=== PATIENT | female | born 1960 | race Caucasian/White ===

== ENCOUNTER 2016-09-13 15:50 | Emergency (ER) | payer OTHER ==
--- NOTE | 2016-09-13 16:53 | ED ---
Throat Pain/Nasal Congestion - HPI Summary HPI Summary: Pt here w/ Lt ear pain today. Has had a URI sx this past week - rhinorrhea, nasal congestion, scratchy throat. No issues w/ balance or hearing loss. Denies fever, chills, cough. Has had diarrhea as well past few days but has been able to rehydrate orally - no nausea, no vomiting. Explains she is very healthy and never gets sick but was around her grandchildren recently and they have had this illness as well. No other complaints today. - History of Current Complaint Chief Complaint: EDEarPain Time Seen by Provider: 09/13/16 15:57 Hx Obtained From: Patient - Allergies/Home Medications Allergies/Adverse Reactions: Allergies Allergy/AdvReac Type Severity Reaction Status Date / Time Sulfamethoxazole Allergy Rash Verified 09/13/16 15:52 w/Trimethoprim [From Bactrim] PMH/Surg Hx/FS Hx/Imm Hx Previously Healthy: Yes Endocrine/Hematology History: Denies: Hx Diabetes, Hx Thyroid Disease Cardiovascular History: Reports: Hx Hypertension Respiratory History: Denies: Hx Asthma Infectious Disease History: No Infectious Disease History: Denies: Traveled Outside the [place] in Last 30 Days - Family History Known Family History: Positive: Hypertension - Social History Lives: Alone Alcohol Use: None Hx Substance Use: No Substance Use Type: Reports: None Hx Tobacco Use: No Smoking Status (MU): Never Smoked Tobacco Review of Systems Negative: Fever, Chills, Fatigue Eyes: Negative Positive: Ear Ache - see HPI. Negative: Dental Pain, Sore Throat Negative: Chest Pain Negative: Shortness Of Breath, Cough Positive: Diarrhea. Negative: Abdominal Pain, Vomiting, Nausea Positive: no symptoms reported Musculoskeletal: Negative Negative: Rash Neurological: Negative Psychological: Normal All Other Systems Reviewed And Are Negative: Yes Physical Exam Triage Information Reviewed: Yes Vital Signs On Initial Exam: Initial Vitals Temp Pulse Resp BP Pulse Ox 98.4 F 91 18 164/96 98 09/13/16 15:52 09/13/16 15:52 09/13/16 15:52 09/13/16 15:52 09/13/16 15:52 Vital Signs Reviewed: Yes Appearance: Positive: Well-Appearing, No Pain Distress, Well-Nourished Skin: Positive: Warm, Dry - no rash overlying Lt side of head/neck Head/Face: Positive: Normal Head/Face Inspection - sinuses NTTP Eyes: Positive: Normal, EOMI. Negative: Conjunctiva Inflammed, Discharge ENT: Positive: Hearing grossly normal, Pharynx normal - cobblestoning, Nasal congestion - B/L nasal mucosa w/ erythema, edema and scant yellow d/c, TMs normal - TM clear w/o erythema, no air/fluid level, no hyperemia, no d/c, NTTP. Negative: Tonsillar swelling, Tonsillar exudate Neck: Positive: Supple, Nontender, No Lymphadenopathy Respiratory/Lung Sounds: Positive: Clear to Auscultation, Breath Sounds Present. Negative: Rales, Rhonchi, Stridor, Wheezes Cardiovascular: Positive: Normal, RRR, S1, S2 Abdomen Description: Positive: Nontender, No Organomegaly, Soft Bowel Sounds: Positive: Present Musculoskeletal: Positive: Normal, Strength/ROM Intact Neurological: Positive: Normal, Sensory/Motor Intact, Alert, Oriented to Person Place, Time, CN Intact II-III Psychiatric: Positive: Normal Diagnostics - Vital Signs Vital Signs Temp Pulse Resp BP Pulse Ox 09/13/16 15:52 98.4 F 91 18 164/96 98 - Laboratory Lab Statement: Any lab studies that have been ordered have been reviewed, and results considered in the medical decision making process. EENT Course/Dx - Course Course Of Treatment: Pt's uri w/ nasal congestion appears to be causing her Lt sided ear pressure. Reviewed conservative care measures to address this. Also provided ENT referral should sx persist despite implementing recommendations. Also reviewed danger s/sx of when to return to ED. Pt agrees w/ plan. - Diagnoses Provider Diagnoses: Dysfunction of left eustachian tube, URI (upper respiratory infection) Discharge - Discharge Plan Condition: Stable Disposition: HOME Patient Education Materials: Upper Respiratory Infection (ED), Eustachian Tube Dysfunction (GEN) Referrals: [facility] [place] [facility]IAN REFERRAL [Outside] Non Staff,Doctor [Primary Care Provider] - Additional Instructions: You may try the following to improve ear pain/pressure: *Saline nasal spray *Afrin nasal spray *Sudafed *Ibuprofen *Vicks vapor rub *humidification *Facial steam with or without eucalyptus essential oil (use sparingly) If symptoms persist or worsen, follow-up with ENT specialist. Contact information provided here. *If you develop headache, change in vision, fever, difficulty swallowing/ breathing, intractable vomiting/diarrhea, and/or fever uncontrolled by ibuprofen /acetaminophen, return to ED
[2016-09-13 17:09] VITALS: BP 136/97
== END 2016-09-13 17:07 | disposition home or self-care (01) ==
LOC: ED 15:50
DX: H69.90 Unspecified Eustachian tube disorder, unspecified ear (principal); J06.9 Acute upper respiratory infection, unspecified; H92.09 Otalgia, unspecified ear; R19.7 Diarrhea, unspecified
CPT/HCPCS: 99281

== ENCOUNTER → 2017-06-30 11:22 | Emergency (ER) | payer OTHER ==
[~2017-06-30 11:22] MED LIST: Aspirin Low Dose CHEW TAB* 81 MG PO ONE; LORazepam TAB(*) 0.5 MG PO ONE
[2017-06-30 11:42] VITALS: BP 156/105
--- NOTE | 2017-06-30 12:24 | RAD ---
INDICATION: Hypertension. Anxiety. History of tobacco use. COMPARISON: No relevant prior exams available on the [facility] PACS for comparison. TECHNIQUE: Dual energy PA and routine lateral views of the chest were obtained. REPORT: Elevated lung volumes and both diffuse mild prominence of the interstitial markings and patchy rarefaction of the mid to upper lung zone interstitial markings. No alveolar consolidation, suspicious focal pulmonary lesion, pleural effusion, pneumothorax. The heart, pulmonary vasculature, and mediastinal contours are unremarkable. Mild costochondral calcifications noted. IMPRESSION: Stigmata of potential chronic obstructive pulmonary disease. No acute cardiopulmonary process evident.
[2017-06-30 12:29] LABS: Hematocrit 40 % (35-47); Hemoglobin 13.8 g/dl (12.0-16.0); Mean Corpuscular HGB Conc 34 g/dl (31-36); Mean Corpuscular Hemoglobin 29 pg (27-31); Mean Corpuscular Volume 85 fL (80-97); Mean Platelet Volume 8 um3 (7.4-10.4); Red Blood Count 4.74 10^6/ul (4.0-5.4); Red Cell Distribution Width 13 % (10.5-15); White Blood Count 8.7 10^3/ul (3.5-10.8)
[2017-06-30 12:44] LABS: Urine Bilirubin Negative (Negative); Urine Glucose Negative (Negative); Urine Nitrite Negative (Negative)
[2017-06-30 12:47] LABS: Albumin 4.7 g/dL (3.2-5.2); BUN/Creatinine Ratio 16.7 (8-20); Calcium 9.8 mg/dL (8.6-10.3); EGFR African American 106.6 (>60); EGFR Non-African American 82.9 (>60); Globulin 3.6 g/dL (2-4); Potassium 2.9 mmol/L (3.5-5.0); Total Bilirubin 0.4 mg/dL (0.2-1.0); Total Protein 8.3 g/dL (6.4-8.9)
[2017-06-30 14:01] LABS: Benzodiazepine Urine Screen None Detected (None Detect)
--- NOTE | 2017-07-01 07:46 | ED ---
Kam Pantoja Angela, scribed for Chago Davis MD on 06/30/17 at 1147 . Psychiatric Complaint - HPI Summary HPI Summary: This pt is a 57 y/o female presenting to [facility] c/o anxiety. Pt reports she has "bad anxiety" and hypertension. Pt notes she takes medications for anxiety. She states she tries to focus more on her dog so that she can relieve her anxiety. Yesterday, pt notes she felt her heart beat pulsating behind her eyeballs. She reports she drinks a lot of chamomile tea before going to bed, but last night she was unable to sleep. Pt additionally states she feels safe at home but feels paranoid when she is outside of her home as she doesn't know her surroundings. Pt denies chest pain, SI, or HI. Pt has a service dog in the ED room. - History Of Current Complaint Chief Complaint: EDMentalHealth Time Seen by Provider: 06/30/17 11:30 Hx Obtained From: Patient Onset/Duration: Lasting Hours, Still Present Timing: Hours Severity Currently: Moderate Character: Anxious Associated Signs And Symptoms: Positive: Paranoid Behavior Has Suicidal: Denies: Thoughts, With A Plan Has Homicidal: Denies: Thoughts, With A Plan - Allergies/Home Medications Allergies/Adverse Reactions: Allergies Allergy/AdvReac Type Severity Reaction Status Date / Time Sulfamethoxazole Allergy Rash Verified 06/30/17 11:40 w/Trimethoprim [From Bactrim] Home Medications: Home Medications Hydrochlorothiazide TAB* [Hydrodiuril TAB*] 25 mg PO QAM 06/30/17 [History Confirmed 06/30/17] Lisinopril TAB* [Prinivil TAB*] 10 mg PO DAILY 06/30/17 [History Confirmed 06/30] PMH/Surg Hx/FS Hx/Imm Hx Endocrine/Hematology History: Denies: Hx Diabetes, Hx Thyroid Disease Cardiovascular History: Reports: Hx Hypertension Respiratory History: Denies: Hx Asthma Infectious Disease History: No Infectious Disease History: Denies: Traveled Outside the [place] in Last 30 Days - Family History Known Family History: Positive: Hypertension - Social History Alcohol Use: None Hx Substance Use: No Substance Use Type: Reports: None Hx Tobacco Use: No Smoking Status (MU): Never Smoked Tobacco Review of Systems Negative: Fever, Chills Eyes: Negative ENT: Negative Negative: Chest Pain Respiratory: Negative Gastrointestinal: Negative Psychological: Other - paranoia Positive: Anxious. Negative: Other - SI or HI All Other Systems Reviewed And Are Negative: Yes Physical Exam - Summary Physical Exam Summary: VITAL SIGNS: Reviewed. GENERAL: Patient is a well-developed and nourished female who is lying comfortable in the stretcher. Patient is not in any acute respiratory distress. HEAD AND FACE: No signs of trauma. No ecchymosis, hematomas or skull depressions. No sinus tenderness. EYES: PERRLA, EOMI x 2, No injected conjunctiva, no nystagmus. EARS: Hearing grossly intact. Ear canals and tympanic membranes are within normal limits. MOUTH: Oropharynx within normal limits. NECK: Supple, trachea is midline, no adenopathy, no JVD, no carotid bruit, no c- spine tenderness, neck with full ROM. CHEST: Symmetric, no tenderness at palpation LUNGS: Clear to auscultation bilaterally. No wheezing or crackles. CVS: Regular rate and rhythm, S1 and S2 present, no murmurs or gallops appreciated. ABDOMEN: Soft, non-tender. No signs of distention. No rebound no guarding, and no masses palpated. Bowel sounds are normal. EXTREMITIES: FROM in all major joints, no edema, no cyanosis or clubbing. NEURO: Alert and oriented x 3. No acute neurological deficits. Speech is normal and follows commands. SKIN: Dry and warm PSYCH: Denies any suicidal thoughts or plan. No homicidal thoughts or plan. No signs of psychosis or pressure speech. No tangential speech. Triage Information Reviewed: Yes Vital Signs On Initial Exam: Initial Vitals Temp Pulse Resp BP Pulse Ox 98.4 F 68 20 156/105 96 06/30/17 11:37 06/30/17 11:37 06/30/17 11:37 06/30/17 11:37 06/30/17 11:37 Vital Signs Reviewed: Yes Diagnostics - Vital Signs Vital Signs Temp Pulse Resp BP Pulse Ox 06/30/17 11:37 98.4 F 68 20 156/105 96 - Laboratory Lab Results: Lab Results 06/30/17 06/30/17 06/30/17 Range/Units 11:55 12:14 12:14 WBC 8.7 (3.5-10.8) 10^3/ul RBC 4.74 (4.0-5.4) 10^6/ul Hgb 13.8 (12.0-16.0) g/dl Hct 40 (35-47) % MCV 85 (80-97) fL MCH 29 (27-31) pg MCHC 34 (31-36) g/dl RDW 13 (10.5-15) % Plt Count 275 (150-450) 10^3/ul MPV 8 (7.4-10.4) um3 Neut % (Auto) 57.8 (38-83) % Lymph % (Auto) 30.2 (25-47) % Cloud % (Auto) 8.4 (1-9) % Eos % (Auto) 2.9 (0-6) % Baso % (Auto) 0.7 (0-2) % Absolute Neuts (auto) 5.0 (1.5-7.7) 10^3/ul Absolute Lymphs (auto) 2.6 (1.0-4.8) 10^3/ul Absolute Monos (auto) 0.7 (0-0.8) 10^3/ul Absolute Eos (auto) 0.3 (0-0.6) 10^3/ul Absolute Basos (auto) 0.1 (0-0.2) 10^3/ul Absolute Nucleated RBC 0 10^3/ul Nucleated RBC % 0 Sodium 136 (133-145) mmol/L Potassium 2.9 L (3.5-5.0) mmol/L Chloride 99 L (101-111) mmol/L Carbon Dioxide 27 (22-32) mmol/L Anion Gap 10 (2-11) mmol/L BUN 12 (6-24) mg/dL Creatinine 0.72 (0.51-0.95) mg/dL Est GFR ( Amer) 106.6 (>60) Est GFR (Non-Af Amer) 82.9 (>60) BUN/Creatinine Ratio 16.7 (8-20) Glucose 98 (70-100) mg/dL Calcium 9.8 (8.6-10.3) mg/dL Total Bilirubin 0.40 (0.2-1.0) mg/dL AST 29 (13-39) U/L ALT 43 (7-52) U/L Alkaline Phosphatase 81 (34-104) U/L Total Protein 8.3 (6.4-8.9) g/dL Albumin 4.7 (3.2-5.2) g/dL Globulin 3.6 (2-4) g/dL Albumin/Globulin Ratio 1.3 (1-3) TSH Cancelled Urine Color Straw Urine Appearance Clear Urine pH 7.0 (5-9) Ur Specific Erving 1.003 L (1.010-1.030) Urine Protein Negative (Negative) Urine Ketones Negative (Negative) Urine Blood Negative (Negative) Urine Nitrate Negative (Negative) Urine Bilirubin Negative (Negative) Urine Urobilinogen Negative (Negative) Ur Leukocyte Esterase Negative (Negative) Urine Glucose Negative (Negative) Salicylates Cancelled Urine Opiates Screen (None Detect) Acetaminophen Cancelled Ur Barbiturates Screen (None Detect) Ur Phencyclidine Scrn (None Detect) Ur Amphetamines Screen (None Detect) U Benzodiazepines Scrn (None Detect) Urine Cocaine Screen (None Detect) U Cannabinoids Screen (None Detect) Serum Alcohol Cancelled 06/30/17 Range/Units 13:00 WBC (3.5-10.8) 10^3/ul RBC (4.0-5.4) 10^6/ul Hgb (12.0-16.0) g/dl Hct (35-47) % MCV (80-97) fL MCH (27-31) pg MCHC (31-36) g/dl RDW (10.5-15) % Plt Count (150-450) 10^3/ul MPV (7.4-10.4) um3 Neut % (Auto) (38-83) % Lymph % (Auto) (25-47) % Cloud % (Auto) (1-9) % Eos % (Auto) (0-6) % Baso % (Auto) (0-2) % Absolute Neuts (auto) (1.5-7.7) 10^3/ul Absolute Lymphs (auto) (1.0-4.8) 10^3/ul Absolute Monos (auto) (0-0.8) 10^3/ul Absolute Eos (auto) (0-0.6) 10^3/ul Absolute Basos (auto) (0-0.2) 10^3/ul Absolute Nucleated RBC 10^3/ul Nucleated RBC % Sodium (133-145) mmol/L Potassium (3.5-5.0) mmol/L Chloride (101-111) mmol/L Carbon Dioxide (22-32) mmol/L Anion Gap (2-11) mmol/L BUN (6-24) mg/dL Creatinine (0.51-0.95) mg/dL Est GFR ( Amer) (>60) Est GFR (Non-Af Amer) (>60) BUN/Creatinine Ratio (8-20) Glucose (70-100) mg/dL Calcium (8.6-10.3) mg/dL Total Bilirubin (0.2-1.0) mg/dL AST (13-39) U/L ALT (7-52) U/L Alkaline Phosphatase (34-104) U/L Total Protein (6.4-8.9) g/dL Albumin (3.2-5.2) g/dL Globulin (2-4) g/dL Albumin/Globulin Ratio (1-3) TSH Urine Color Urine Appearance Urine pH (5-9) Ur Specific Erving (1.010-1.030) Urine Protein (Negative) Urine Ketones (Negative) Urine Blood (Negative) Urine Nitrate (Negative) Urine Bilirubin (Negative) Urine Urobilinogen (Negative) Ur Leukocyte Esterase (Negative) Urine Glucose (Negative) Salicylates Urine Opiates Screen None detected (None Detect) Acetaminophen Ur Barbiturates Screen None detected (None Detect) Ur Phencyclidine Scrn None detected (None Detect) Ur Amphetamines Screen None detected (None Detect) U Benzodiazepines Scrn None detected (None Detect) Urine Cocaine Screen None detected (None Detect) U Cannabinoids Screen None detected (None Detect) Serum Alcohol Result Diagrams: 06/30/17 12:14 06/30/17 12:14 Lab Statement: Any lab studies that have been ordered have been reviewed, and results considered in the medical decision making process. - Radiology Chest XR Xray Interpretation: Positive (See Comments) - IMPRESSION: Stigmata of potential chronic obstructive pulmonary disease. No acute cardiopulmonary process evident. ED physician has reviewed this radiology report and agrees. Radiology Interpretation Completed By: Radiologist - EKG 1206 Cardiac Rate: NL EKG Rhythm: Sinus Rhythm - at 76 bpm EKG Interpretation: No ST elevation. Normal axis. Course/Dx - Course Assessment/Plan: This pt is a 57 y/o female presenting to [facility] c/o anxiety. Pt reports she has "bad anxiety" and hypertension. Pt notes she takes medications for anxiety. She states she tries to focus more on her dog so that she can relieve her anxiety. Yesterday, pt notes she felt her heart beat pulsating behind her eyeballs. She reports she drinks a lot of chamomile tea before going to bed, but last night she was unable to sleep. Pt additionally states she feels safe at home but feels paranoid when she is outside of her home as she doesn't know her surroundings. Pt denies chest pain, SI, or HI. Pt has a service dog in the ED room. All blood work within normal limits. Pt is medically cleared at 11:50. Pt is waiting for [facility]. Pt was evaluated by Dr. Alexander and recommends discharge. Pt will be discharged home with a diagnosis of anxiety. Initially patient was hypertensive but now BP is 130/80. - Differential Dx/Clinical Impression Differential Diagnosis/HQI/PQRI: Positive: Anxiety, Depression Provider Diagnosis: Anxiety Discharge - Discharge Plan Condition: Stable Disposition: HOME Referrals: Non Staff,Doctor [Primary Care Provider] - The documentation as recorded by the Kam callahan Angela accurately reflects the service I personally performed and the decisions made by me, Chago Davis MD.
== END | disposition home or self-care (01) ==
LOC: ED 11:22
DX: F41.9 Anxiety disorder, unspecified (principal); Z86.79 Personal history of other diseases of the circulatory system
CPT/HCPCS: 36415; 71020; 80053; 80307; 81003; 85025; 93005; 99283; A9270-GY